=== PATIENT | male | born 1985 | race Caucasian/White ===

== ENCOUNTER 2019-08-26 07:47 | Day surgery (SDC) | payer BC, OTHER ==
[~2019-08-26 07:47] MED LIST: Lactated Ringers 1,000 ML IV SCH; Lidocaine 1%/Sod Bicarbonate in NS 8.4% 1 ML Syringe IDERM PRN; Sodium Chloride 0.9% 10 ML Syringe FLUSH PRN
--- NOTE | 2019-08-26 08:59 | PCM.PREANE ---
Preanesthetic Assessment - Anesthesia/Transfusion/Family Hx Anesthesia History: Prior Anesthesia Without Reaction Family History of Anesthesia Reaction: No - Review of Systems General: No Symptoms Pulmonary: No Symptoms, Other (Quit smoking 08/05/19 prevoiusly 3-4 cigarettes per day. KATERINE with CPAP use. ) Cardiovascular: No Symptoms Gastrointestinal: Other (GERD/Burping. No symptoms today. ) Neurological: No Symptoms Other: Reports: None (PTSD, Bipolar, ADHD, Obesity BMI 47), Diabetes (Blood Glucose 134 mg/dl this morning), Depression - Physical Assessment NPO Status Date: 08/25/19 NPO Status Time: 23:00 Vital Signs: Last Vital Signs Temp 36.5 C 08/26/19 08:00 Pulse 89 08/26/19 08:00 Resp 16 08/26/19 08:00 BP 134/69 08/26/19 08:00 Pulse Ox 95 08/26/19 08:00 Height: 1.68 m Weight: 132.449 kg ASA Class: 3 Mental Status: Alert & Oriented x3 Airway Class: Mallampati = 2 Dentition: Reports: Normal Dentition Thyro-Mental Finger Breadths: 3 Mouth Opening Finger Breadths: 3 ROM/Head Extension: Full Lungs: Clear to Auscultation, Normal Respiratory Effort Cardiovascular: Regular Rate, Regular Rhythm, No Murmurs (History of a murmur as a child.) - Lab Values: Laboratory Last Values POC Glucose 134 mg/dL (70-105) H 08/26/19 08:28 - Allergies Allergies/Adverse Reactions: Allergies Allergy/AdvReac Type Severity Reaction Status Date / Time lactose AdvReac Nausea and Verified 08/25/19 15:49 Vomiting - Acknowledgements Anesthesia Type Planned: MAC Pt an Appropriate Candidate for the Planned Anesthesia: Yes Alternatives and Risks of Anesthesia Discussed w Pt/Guardian: Yes Pt/Guardian Understands and Agrees with Anesthesia Plan: Yes PreAnesthesia Questionnaire HEENT History: Reports: None Cardiovascular History: Reports: Heart Murmur, High Cholesterol Respiratory History: Reports: Sleep Apnea Gastrointestinal History: Reports: Other (See Below) Other Gastrointestinal History: fatty liver, lactose intolerance Genitourinary History: Reports: None MANAGER OF GLOBAL History: Reports: None Musculoskeletal History: Reports: Gout Neurological History: Reports: None Psychiatric History: Reports: ADHD, Bipolar, Depression, PTSD, Other (See Below) Other Psychiatric History: insomnia, pysch hospitalization Endocrine/Metabolic History: Reports: Diabetes, Type II, Obesity/BMI 30+ Hematologic History: Reports: Anemia Immunologic History: Reports: None Oncologic (Cancer) History: Reports: None Dermatologic History: Reports: Other (See Below) Other Dermatologic History: hidradenitis suppurativa - Past Surgical History Head Surgeries/Procedures: Reports: None HEENT Surgical History: Reports: Oral Surgery Cardiovascular Surgical History: Reports: None Respiratory Surgical History: Reports: None GI Surgical History: Reports: Colonoscopy Male Surgical History: Reports: Vasectomy Endocrine Surgical History: Reports: None Neurological Surgical History: Reports: None Musculoskeletal Surgical History: Reports: None Oncologic Surgical History: Reports: None - SUBSTANCE USE Smoking Status *Q: Former Smoker Recreational Drug Use History: No - HOME MEDS Home Medications: Home Meds Allopurinol [Zyloprim] 100 mg PO DAILY 08/25/19 [History] Aspirin 81 mg PO DAILY 08/25/19 [History] Dextroamphetamine/Amphetamine [Adderall 10 mg Tablet] 10 mg PO BID 08/25/19 [ History] Liraglutide [Victoza] 1.8 mg SQ DAILY 08/25/19 [History] Pantoprazole Sodium 40 mg PO DAILY 08/25/19 [History] QUEtiapine Fumarate [Quetiapine Fumarate] 50 mg PO DAILY 08/25/19 [History] Simvastatin 80 mg PO BEDTIME 08/25/19 [History] Venlafaxine HCl [Venlafaxine ER] 150 mg PO DAILY 08/25/19 [History] Venlafaxine [Effexor] 75 mg PO DAILY 08/25/19 [History] lisinopriL [Lisinopril] 20 mg PO DAILY 08/25/19 [History] metFORMIN [Glucophage XR] 500 mg PO BID 08/25/19 [History] - CURRENT (IN HOUSE) MEDS Current Meds: Current Medications Lactated Ringer's (Ringers, Lactated) 1,000 mls @ 125 mls/hr IV ASDIRECTED MECHELLE Stop: 08/26/19 23:00 Lidocaine/Sodium Bicarbonate (Buffered Lidocaine 1% In Ns 8.4%) 0.25 ml IDERM ONETIME PRN PRN Reason: Prior to IV Start Stop: 08/26/19 18:00 Sodium Chloride (Saline Flush) 10 ml FLUSH ASDIRECTED PRN PRN Reason: Keep Vein Open Stop: 08/26/19 18:00
[2019-08-26] MEDS ORDERED: Propofol 200 MG/20 ML SDV ONE ×2 (09:21→09:58)
[2019-08-26] MEDS ORDERED: Lidocaine 1% 4 ML ONE ×2 (09:24→09:47)
[2019-08-26] MEDS ORDERED: fentaNYL 100 MCG/2 ML SDV ONE (09:25)
[2019-08-26] MEDS ORDERED: Lactated Ringers 1,000 ML ONE (10:12)
--- NOTE | 2019-08-26 10:24 | PCM.OPNOTE ---
- General Post-Op/Procedure Note Date of Surgery/Procedure: 08/26/19 Operative Procedure(s): EGD and colonoscopy Findings: 1. Duodenal plaques in the second portion of the duodenum 2. Duodenal polyps 3. Gastritis 4. Bile reflux 5. Small sliding hiatal hernia 6. Irregular GE junction 7. Transverse colon polyp Pre Op Diagnosis: Melena, reflux, change in bowel habits Post-Op Diagnosis: Same Anesthesia Technique: MAC Primary Surgeon: Emerita Cardona Anesthesia Provider: Servando Guillaume Pathology: 1. Duodenal biopsy (2nd portion of the duodenum) 2. Duodenal polyp biopsy 3. Gastric antrum 4. GE junction biopsies 5. Transverse colon polyp Fluid Replacement, Intraop: 1,500 EBL in mLs: 0 Complications: None apparent Condition: Good
--- NOTE | 2019-08-26 10:25 | PCM.PRNOTE ---
- Free Text/Narrative Note: Operative Report Date of Procedure: August 26, 2019 Pre Op Diagnosis: Melena, reflux, change in bowel habits Post-Op Diagnosis: Same Operative Procedures: 1. EGD with biopsy 2. Colonoscopy to the cecum with polypectomy Primary Surgeon: Emerita Cardona MD Anesthesia Provider: Servando Guillaume CRNA Anesthesia Technique: MAC IV Fluid Replacement, Intraop: 1500cc crystalloid Output, Urine Amount: 0cc EBL in mLs: 0cc Findings: 1. Duodenal plaques in the second portion of the duodenum 2. Duodenal polyps 3. Gastritis 4. Bile reflux 5. Small sliding hiatal hernia 6. Irregular GE junction 7. Transverse colon polyp Specimens: 1. Duodenal biopsy (2nd portion of the duodenum) 2. Duodenal polyp biopsy 3. Gastric antrum 4. GE junction biopsies 5. Transverse colon polyp Drain/Tubes: None Indication: The patient is a 34-year-old gentleman who presented to the clinic with findings of melena, as well as change in bowel habits. The patient reported symptoms of reflux, burping, and tarry stools in addition in addition. The patient was consented for a diagnostic EGD and colonoscopy. Risks of bleeding, and perforation were discussed, and the patient agreed to the risks and wished to proceed. Description of the procedure: The patient was taken back to the endoscopy suite, and placed in the left lateral decubitus position. A bite block was placed. The patient was sedated with MAC anesthesia. The Olympus video endoscope was inserted into the oropharynx and guided under direct vision into the esophagus, stomach, and duodenum. The gastric antrum was inspected and cold biopsy forceps were used to take tissue samples for H. pylori. The duodenal bulb was unremarkable, but the second portion of the duodenum was marked by multiple small white plaques adherent to the mucosa. Biopsies were taken in this area using a cold biopsy forceps. The scope was withdrawn to the stomach and retroflexed. There was increased bilious fluid, and the body of the stomach, this was suctioned. No erosions or ulcers were noted. The scope was withdrawn to the esophagus. A this point we noted a small sliding hiatal hernia. The gastroesophageal junction was irregular, but more concerning for esophagitis. Biopsies were taken in 4 quadrants using cold biopsy forceps at the GE junction. The endoscope was then withdrawn Next, anorectal examination was performed. No lesions, masses or hemorrhoids were noted externally or on palpation. The scope was placed into the rectum and advanced to cecum. Upon reaching the cecum, and the patients cecum was entered. There was minimal tortuosity of the colon. The ileocecal valve was well visualized and the appendiceal orifice identified. At this point, the scope was slowly withdrawn, paying attention to the mucosa. The patient had excellent bowel prep, greater than 95 % of the mucosa was visible. A single 2- 3mm, flat, transverse colon polyp was noted. This was removed using cold biopsy forceps. In the rectum, scope was retroflexed and some hemorrhoidal tissue was noted. The scope was placed back in the lumen and excess air was aspirated. The scope was removed. The patient tolerated the procedure very well. Complications: None apparent Condition: The patient was transported to PACU in stable condition. Emerita Cardona MD General Surgery
--- NOTE | 2019-08-26 10:35 | PCM48HPAN ---
Post Anesthesia Note - EVALUATION WITHIN 48HRS OF ANESTHETIC Vital Signs in Normal Range: Yes Patient Participated in Evaluation: Yes Respiratory Function Stable: Yes Airway Patent: Yes Cardiovascular Function Stable: Yes Hydration Status Stable: Yes Pain Control Satisfactory: Yes Nausea and Vomiting Control Satisfactory: Yes Mental Status Recovered: Yes Vital Signs: Last Vital Signs Temp 97.7 F 08/26/19 08:00 Pulse 89 08/26/19 08:00 Resp 16 08/26/19 08:00 BP 134/69 08/26/19 08:00 Pulse Ox 95 08/26/19 08:00
[2019-08-26 11:06] VITALS: BP 121/62; PULSE 94
== END 2019-08-26 11:12 | disposition home or self-care (01) ==
LOC: JD.SDS 07:47
PROVIDERS: ATTEND Surgery
DX: K29.71 Gastritis, unspecified, with bleeding (principal); D12.3 Benign neoplasm of transverse colon; K31.89 Other diseases of stomach and duodenum; K21.0 Gastro-esophageal reflux disease with esophagitis; K31.7 Polyp of stomach and duodenum; K44.9 Diaphragmatic hernia without obstruction or gangrene; E78.2 Mixed hyperlipidemia; E11.9 Type 2 diabetes mellitus without complications; M10.9 Gout, unspecified; F32.9 Major depressive disorder, single episode, unspecified; E66.01 Morbid (severe) obesity due to excess calories; Z79.899 Other long term (current) drug therapy; Z79.82 Long term (current) use of aspirin; Z79.4 Long term (current) use of insulin; Z87.891 Personal history of nicotine dependence; Z68.42 Body mass index [BMI] 45.0-49.9, adult
CPT/HCPCS: 43239; 45380; 82962; J2001; J2704; J3010; J7120

== ENCOUNTER 2020-07-31 14:03 | Emergency (ER) | payer BC ==
[2020-07-31 14:20] VITALS: BP 162/101; PULSE 94
[2020-07-31] MEDS ORDERED: Ondansetron 4 MG/2 ML SDV IVPUSH ONE (15:05)
[2020-07-31] MEDS ORDERED: HYDROmorphone 1 MG/ML Syringe IVPUSH STA (15:05)
[2020-07-31] MEDS ORDERED: Sodium Chloride 0.9% 10 ML Syringe FLUSH PRN (15:05)
--- NOTE | 2020-07-31 15:10 | EDM.PDOC ---
ED HPI GENERAL MEDICAL PROBLEM - General Chief Complaint: Flank Pain Stated Complaint: LOW ABD AND BACK PAIN HAS HX OF KIDNEY STONES Time Seen by Provider: 07/31/20 14:58 Source of Information: Reports: Patient, RN Notes Reviewed History Limitations: Reports: No Limitations - History of Present Illness INITIAL COMMENTS - FREE TEXT/NARRATIVE: Patient is a 35-year-old male who presents to the ED for the evaluation of his left flank pain. Patient notes he has a history of kidney stones, and states that the pain feels quite similar to that. He developed this pain at around 1 AM this morning, when they started driving back from [place] after visiting his mother for the holidays. He was able to urinate this morning, but is still having left flank pain and pain that radiates into his groin. He did not take anything for pain management at home, he feels generally nauseous has but has not vomited, he has had no fevers or chills, or any cough or shortness of breath. FLANK LEFT Pain Score (Numeric/FACES): 10 - Related Data Allergies Allergy/AdvReac Type Severity Reaction Status Date / Time lactose AdvReac Nausea and Verified 08/25/19 15:49 Vomiting Home Meds: Home Meds Allopurinol [Zyloprim] 100 mg PO DAILY 08/25/19 [History] Aspirin 81 mg PO DAILY 08/25/19 [History] Dextroamphetamine/Amphetamine [Adderall 10 mg Tablet] 10 mg PO BID 08/25/19 [History] Liraglutide [Victoza] 1.8 mg SQ DAILY 08/25/19 [History] Pantoprazole Sodium 40 mg PO DAILY 08/25/19 [History] QUEtiapine Fumarate [Quetiapine Fumarate] 50 mg PO DAILY 08/25/19 [History] Simvastatin 80 mg PO BEDTIME 08/25/19 [History] Venlafaxine HCl [Venlafaxine ER] 150 mg PO DAILY 08/25/19 [History] Venlafaxine [Effexor] 75 mg PO DAILY 08/25/19 [History] lisinopriL [Lisinopril] 20 mg PO DAILY 08/25/19 [History] metFORMIN [Glucophage XR] 500 mg PO BID 08/25/19 [History] Tamsulosin [Tamsulosin 24 Hr] 0.4 mg PO DAILY #5 cap.er 07/31/20 [Rx] Past Medical History Cardiovascular History: Reports: Heart Murmur, High Cholesterol Respiratory History: Reports: Sleep Apnea Gastrointestinal History: Reports: Other (See Below) Other Gastrointestinal History: fatty liver, lactose intolerance Musculoskeletal History: Reports: Gout Psychiatric History: Reports: ADHD, Bipolar, Depression, PTSD, Other (See Below) Other Psychiatric History: insomnia, pysch hospitalization Endocrine/Metabolic History: Reports: Diabetes, Type II, Obesity/BMI 30+ Hematologic History: Reports: Anemia Dermatologic History: Reports: Other (See Below) Other Dermatologic History: hidradenitis suppurativa - Past Surgical History HEENT Surgical History: Reports: Oral Surgery GI Surgical History: Reports: Colonoscopy Male Surgical History: Reports: Vasectomy Social & Family History - Tobacco Use Tobacco Use Status *Q: Current Some Day Tobacco User Years of Tobacco use: 20 Packs/Tins Daily: 0.1 - Caffeine Use Caffeine Use: Reports: Soda - Recreational Drug Use Recreational Drug Use: No ED ROS GENERAL - Review of Systems Review Of Systems: Comprehensive ROS is negative, except as noted in HPI. ED EXAM, RENAL/ - Physical Exam Exam: See Below Exam Limited By: No Limitations General Appearance: Alert, WD/WN, No Apparent Distress Respiratory/Chest: No Respiratory Distress, Lungs Clear, Normal Breath Sounds, No Accessory Muscle Use, Chest Non-Tender Cardiovascular: Normal Peripheral Pulses, Regular Rate, Rhythm, No Edema GI/Abdominal: Normal Bowel Sounds, Soft, Non-Tender, No Distention, No Mass Extremities: Normal Inspection, Normal Capillary Refill Neurological: Alert, Oriented, Normal Cognition, No Motor/Sensory Deficits Psychiatric: Normal Affect, Normal Mood Skin Exam: Warm, Dry, Intact, Normal Color, No Rash Course - Vital Signs Last Recorded V/S: Last Vital Signs Temp 97.8 F 07/31/20 14:17 Pulse 94 07/31/20 14:17 Resp 22 H 07/31/20 14:17 BP 162/101 H 07/31/20 14:17 Pulse Ox 98 07/31/20 14:17 - Orders/Labs/Meds Orders: Active Orders 24 hr Category Date Time Status Peripheral IV Care [RC] . DIRECTED Care 07/31/20 15:06 Ordered Strain Urine [RC] ASDIRECTED Care 07/31/20 15:05 Ordered Sodium Chloride 0.9% [Normal Saline] 1,000 ml Med 07/31/20 15:15 Ordered IV ASDIRECTED Sodium Chloride 0.9% [Saline Flush] Med 07/31/20 15:05 Ordered 10 ml FLUSH ASDIRECTED PRN Peripheral IV Insertion Adult [OM.PC] Routine Oth 07/31/20 15:05 Ordered Medication Orders Sodium Chloride (Normal Saline) 1,000 mls @ 999 mls/hr IV ASDIRECTED MECHELLE Last Admin: 07/31/20 15:17 Dose: 999 mls/hr Documented by: BEN Sodium Chloride (Saline Flush) 10 ml FLUSH ASDIRECTED PRN PRN Reason: Keep Vein Open Last Admin: 07/31/20 15:18 Dose: 10 ml Documented by: BEN Labs: Laboratory Tests 07/31/20 07/31/20 07/31/20 Range/Units 14:29 14:29 15:00 WBC 11.88 H (4.23-9.07) K/mm3 RBC 5.49 (4.63-6.08) M/mm3 Hgb 13.6 L (13.7-17.5) gm/dl Hct 45.5 (40.1-51.0) % MCV 82.9 (79.0-92.2) fl MCH 24.8 L (25.7-32.2) pg MCHC 29.9 L (32.2-35.5) g/dl RDW Std Deviation 46.1 H (35.1-43.9) fL Plt Count 127 L (163-337) K/mm3 Neut % (Auto) 83.3 H (34.0-67.9) % Lymph % (Auto) 8.1 L (21.8-53.1) % [place] % (Auto) 7.4 (5.3-12.2) % Eos % (Auto) 0.3 L (0.8-7.0) Baso % (Auto) 0.2 (0.1-1.2) % Neut # (Auto) 9.91 H (1.78-5.38) K/mm3 Lymph # (Auto) 0.96 L (1.32-3.57) K/mm3 [place] # (Auto) 0.88 H (0.30-0.82) K/mm3 Eos # (Auto) 0.03 L (0.04-0.54) K/mm3 Baso # (Auto) 0.02 (0.01-0.08) K/mm3 Manual Slide Review Abnormal smear Sodium 138 (136-145) mEq/L Potassium 4.6 (3.5-5.1) mEq/L Chloride 100 (98-107) mEq/L Carbon Dioxide 26 (21-32) mEq/L Anion Gap 16.6 H (5-15) BUN 10 (7-18) mg/dL Creatinine 1.1 (0.7-1.3) mg/dL Est Cr Clr Drug Dosing 85.39 mL/min Estimated GFR (MDRD) > 60 (>60) mL/min BUN/Creatinine Ratio 9.1 L (14-18) Glucose 119 H (74-106) mg/dL Calcium 9.0 (8.5-10.1) mg/dL Total Bilirubin 0.4 (0.2-1.0) mg/dL AST 62 H (15-37) U/L ALT 188 H (16-63) U/L Alkaline Phosphatase 103 (46-116) U/L Total Protein 8.2 (6.4-8.2) g/dl Albumin 4.3 (3.4-5.0) g/dl Globulin 3.9 gm/dL Albumin/Globulin Ratio 1.1 (1-2) Urine Color Yellow (Yellow) Urine Appearance Clear (Clear) Urine pH 6.0 (5.0-8.0) Ur Specific [place] > or = 1.030 (1.005-1.030) Urine Protein Trace H (Negative) Urine Glucose (UA) Negative (Negative) Urine Ketones Negative (Negative) Urine Occult Blood 2+ H (Negative) Urine Nitrite Negative (Negative) Urine Bilirubin Negative (Negative) Urine Urobilinogen 0.2 (0.2-1.0) Ur Leukocyte Esterase Negative (Negative) U Hyaline Cast (Auto) 0-5 (0-5) /lpf Urine RBC 0-5 (0-5) /hpf Urine WBC 0-5 (0-5) /hpf Ur Epithelial Cells Not seen (0-5) /hpf Urine Bacteria Moderate H (FEW) /hpf Urine Mucus Many H (FEW) /hpf Meds: Medications Generic Name Dose Route Start Last Admin Trade Name Freq PRN Reason Stop Dose Admin Sodium Chloride 1,000 mls @ 999 mls/hr 12/27/20 15:15 07/31/20 15:17 Normal Saline IV 999 mls/hr ASDIRECTED MECHELLE Administration Sodium Chloride 10 ml 07/31/20 15:05 07/31/20 15:18 Saline Flush FLUSH 10 ml ASDIRECTED PRN Administration Keep Vein Open Discontinued Medications Generic Name Dose Route Start Last Admin Trade Name Balwinderq PRN Reason Stop Dose Admin Hydromorphone HCl 1 mg 07/31/20 15:05 07/31/20 15:17 Dilaudid IVPUSH 07/31/20 15:06 1 mg ONETIME STA Administration Hydromorphone HCl 0.5 mg 07/31/20 16:15 07/31/20 16:18 Dilaudid IVPUSH 07/31/20 16:16 0.5 mg ONETIME ONE Administration Ondansetron HCl 4 mg 07/31/20 15:05 07/31/20 15:17 Zofran IVPUSH 07/31/20 15:06 4 mg ONETIME ONE Administration Tamsulosin HCl 0.4 mg 07/31/20 16:32 07/31/20 16:39 Flomax PO 07/31/20 16:33 0.4 mg ONETIME ONE Administration - Re-Assessments/Exams Free Text/Narrative Re-Assessment/Exam: 07/31/20 15:09 Patient presents to the ED for the evaluation of his left flank pain. There is suspicious for kidney stone in nature, we will get CT, basic labs, urinalysis get some IV pain meds and nausea meds on board with some fluids for initial management. 07/31/20 16:25 CT is done, and there does appear to be a kidney stone within the bladder at this time. No other focal abnormalities are appreciated by myself however official radiology read is pending. 07/31/20 16:[address] has been read, there is a 4.5 mm stone located at the UVJ within the distal left ureter. Patient has been given 1 dose of Flomax while in the ER, will get him some outpatient prescriptions for pain meds and nausea medications along with Flomax for the next day or 2, until he passes the stone in his urine. Departure - Departure Time of Disposition: 16:40 Disposition: Home, Self-Care 01 Condition: Good Clinical Impression: Left renal stone - Discharge Information *PRESCRIPTION DRUG MONITORING PROGRAM REVIEWED*: No *COPY OF PRESCRIPTION DRUG MONITORING REPORT IN PATIENT [place]: No Prescriptions: Tamsulosin [Tamsulosin 24 Hr] 0.4 mg PO DAILY #5 cap.er Instructions: Dietary Guidelines to Help Prevent Kidney Stones Referrals: Nicole Cordero PA-C [Primary Care Provider] - Forms: ED Department Discharge Additional Instructions: You were evaluated in the ER today for your left flank pain. Your urinalysis did demonstrate some blood in urine, which is suggestive of a kidney stone at this time. A CT was done at this ER visit, this demonstrated a 4.5mm stone within your distal left ureter. You have been given a strainer, please use every time you use the bathroom to make sure that the kidney stone has passed. Believe the stone will pass within the next day or 2 due to where it is located. Recommend that you increase your oral fluid intake to try to help the stone pass. You were given oral Flomax, you will need to go to the pharmacy tomorrow to pick this up. 1 tablet daily until you passed the stone. Please strain your urine, every time you use the bathroom, to make sure that you have in fact passed the stone. You have been given a few tablets of pain medication, please take as prescribed. These medications are highly addictive, please take as few as you need to. These medications also may cause constipation, please take a stool softener like MiraLAX while taking these medications. If your pain is not much better in a week's time, you may need to follow up with your primary care physician, for a possible urology referral. Please return to the ED if your symptoms change or worsen. Sepsis Event Note (ED) - Evaluation Sepsis Screening Result: No Definite Risk - Focused Exam Vital Signs: Vital Signs Temp Pulse Resp BP Pulse Ox 07/31/20 14:17 97.8 F 94 22 H 162/101 H 98 - My Orders Last 24 Hours: My Active Orders 07/31/20 15:05 Strain Urine [RC] ASDIRECTED Sodium Chloride 0.9% [Saline Flush] 10 ml FLUSH ASDIRECTED PRN Peripheral IV Insertion Adult [OM.PC] Routine 07/31/20 15:06 Peripheral IV Care [RC] . DIRECTED 07/31/20 15:15 Sodium Chloride 0.9% [Normal Saline] 1,000 ml IV ASDIRECTED - Assessment/Plan Last 24 Hours: My Active Orders 07/31/20 15:05 Strain Urine [RC] ASDIRECTED Sodium Chloride 0.9% [Saline Flush] 10 ml FLUSH ASDIRECTED PRN Peripheral IV Insertion Adult [OM.PC] Routine 07/31/20 15:06 Peripheral IV Care [RC] . DIRECTED 07/31/20 15:15 Sodium Chloride 0.9% [Normal Saline] 1,000 ml IV ASDIRECTED
[2020-07-31] MEDS ORDERED: Sodium Chloride 0.9% 1,000 ML IV SCH (15:15)
[2020-07-31] MEDS ORDERED: HYDROmorphone 0.5 MG/0.5 ML Syringe IVPUSH ONE (16:15)
--- NOTE | 2020-07-31 16:31 | CT ---
CT abdomen and pelvis Technique: Multiple axial sections were obtained from above the dome of the diaphragm inferiorly through the pubic symphysis. Intravenous and oral contrast not utilized. Study has been performed as a ureteral stone protocol. Reconstructed coronal and sagittal images were also obtained. Findings: Kidneys show no abnormal calcifications. Left ureter is slightly prominent with mild surrounding inflammatory change. This finding is caused by an obstructing stone located distally at the UVJ measuring approximately 4.5 mm. Other portions of the ureters show no other abnormal calcifications. Other findings: Visualized lung bases show nothing acute. Diffuse fatty infiltration is seen within the liver. Spleen appears within normal limits. Adrenal glands show no nodule. Pancreas appears within normal limits. Aorta shows no aneurysm. No retroperitoneal adenopathy or mesenteric abnormalities are appreciated. No pelvic mass or adenopathy is appreciated. Very small left-sided fat-containing inguinal hernia is noted. Appendix is not definitely appreciated. Bone window settings were reviewed which appear within normal limits for the patient's age. Impression: 1. 4.5 mm stone located at the UVJ within the distal left ureter. 2. Diffuse fatty infiltration within the liver. 3. No other acute abnormality is appreciated on noncontrast CT study of the abdomen and pelvis. Diagnostic code #3
[2020-07-31] MEDS ORDERED: Tamsulosin 0.4 MG Cap.ER PO ONE (16:32)
== END 2020-07-31 16:56 | disposition home or self-care (01) ==
LOC: JD.ED 14:03
DX: N20.2 Calculus of kidney with calculus of ureter (principal); E78.00 Pure hypercholesterolemia, unspecified; M10.9 Gout, unspecified; F31.9 Bipolar disorder, unspecified; E11.9 Type 2 diabetes mellitus without complications; E66.9 Obesity, unspecified; F90.9 Attention-deficit hyperactivity disorder, unspecified type; F17.210 Nicotine dependence, cigarettes, uncomplicated; Z68.42 Body mass index [BMI] 45.0-49.9, adult; Z79.82 Long term (current) use of aspirin; Z79.84 Long term (current) use of oral hypoglycemic drugs; Z79.899 Other long term (current) drug therapy; Z91.048 Other nonmedicinal substance allergy status
CPT/HCPCS: 36415; 74176; 80053; 81001; 85025; 96374; 96375; 96376; 99284; A9270; J1170; J2405; J7030

== ENCOUNTER 2022-05-16 14:05 | Emergency (ER) | payer BC ==
[2022-05-16 14:59] VITALS: BP 128/66; PULSE 107
[2022-05-16] MEDS ORDERED: Ketorolac 60 MG/2 ML SDV IM ONE (15:07)
== END 2022-05-16 18:26 | disposition home or self-care (01) ==
LOC: JD.ED 14:05
DX: N43.3 Hydrocele, unspecified (principal); E78.00 Pure hypercholesterolemia, unspecified; I10 Essential (primary) hypertension; E11.9 Type 2 diabetes mellitus without complications; E66.9 Obesity, unspecified; Z68.42 Body mass index [BMI] 45.0-49.9, adult; Z91.011 Allergy to milk products; Z79.899 Other long term (current) drug therapy; Z79.82 Long term (current) use of aspirin; Z79.84 Long term (current) use of oral hypoglycemic drugs; Z87.891 Personal history of nicotine dependence
CPT/HCPCS: 76870; 76870-26; 93975; 96372; 99284

== ENCOUNTER 2022-12-03 06:46 | Day surgery (SDC) | payer BC ==
[~2022-12-03 06:46] MED LIST changes: +Sodium Chloride 0.9% 10 ML Syringe FLUSH SCH
[2022-12-03] MEDS ORDERED: Acetaminophen 325 MG Tab PO SCH (07:00)
[2022-12-03] MEDS ORDERED: Gabapentin 300 MG Cap PO SCH (07:00)
[2022-12-03] MEDS ORDERED: Bupivacaine 0.5%/EPINEPHrine 1:200,000 50 ML MDV ONE (07:09)
[2022-12-03] MEDS ORDERED: Lidocaine 1% with EPINEPHrine 1:100,000 20 ML MDV ONE (07:10)
[2022-12-03] MEDS ORDERED: Rocuronium 50 MG/5 ML Vial ONE (07:14)
[2022-12-03] MEDS ORDERED: fentaNYL 100 MCG/2 ML SDV ONE (07:14)
[2022-12-03] MEDS ORDERED: Midazolam 1 MG/ML 2 ML SDV ONE (07:14)
[2022-12-03] MEDS ORDERED: ceFAZolin 2 GM Vial ONE ×2 (07:14→08:19)
[2022-12-03] MEDS ORDERED: Lidocaine 1% 4 ML ONE (07:14)
[2022-12-03] MEDS ORDERED: Propofol 200 MG/20 ML SDV ONE (07:14)
[2022-12-03] MEDS ORDERED: Succinylcholine 200 MG/10 ML MDV ONE (08:19)
[2022-12-03] MEDS ORDERED: Ketorolac 30 MG/ML SDV ONE (08:43)
[2022-12-03] MEDS ORDERED: Ondansetron 4 MG/2 ML SDV ONE (08:43)
[2022-12-03] MEDS ORDERED: fentaNYL 100 MCG/2 ML SDV IVPUSH PRN (09:03)
[2022-12-03] MEDS ORDERED: HYDROmorphone 0.5 MG/0.5 ML Syringe IVPUSH PRN (09:03)
[2022-12-03] MEDS ORDERED: Ondansetron 4 MG/2 ML SDV IVPUSH PRN (09:03)
[2022-12-03] MEDS ORDERED: ePHEDrine 50 MG/ML SDV ONE (10:04)
[2022-12-03 10:28] VITALS: BP 95/60; PULSE 81
== END 2022-12-03 10:37 | disposition home or self-care (01) ==
LOC: JD.SDS 06:46
PROVIDERS: ATTEND Surgery
DX: K60.3 Anal fistula (principal); F31.9 Bipolar disorder, unspecified; D64.9 Anemia, unspecified; F43.10 Post-traumatic stress disorder, unspecified; F51.05 Insomnia due to other mental disorder; F90.9 Attention-deficit hyperactivity disorder, unspecified type; E66.01 Morbid (severe) obesity due to excess calories; F41.9 Anxiety disorder, unspecified; G47.33 Obstructive sleep apnea (adult) (pediatric); I10 Essential (primary) hypertension; R01.1 Cardiac murmur, unspecified; E78.2 Mixed hyperlipidemia; Z79.899 Other long term (current) drug therapy; Z79.82 Long term (current) use of aspirin; Z79.84 Long term (current) use of oral hypoglycemic drugs; Z91.011 Allergy to milk products; Z87.891 Personal history of nicotine dependence; Z68.42 Body mass index [BMI] 45.0-49.9, adult
CPT/HCPCS: 45990; 46275; 82947; A9270; J0330; J1885; J2250; J2405; J2704; J3010; J3490; J7120; J0690

== ENCOUNTER 2023-05-01 20:33 | Emergency (ER) | payer BC ==
[2023-05-01] MEDS ORDERED: Acetaminophen/HYDROcodone 325-10 MG Tab PO ONE (20:50)
[2023-05-01 22:40] VITALS: BP 124/55; PULSE 105
== END 2023-05-01 21:42 | disposition home or self-care (01) ==
LOC: JD.ED 20:33
DX: S93.402A Sprain of unspecified ligament of left ankle, initial encounter (principal); E11.9 Type 2 diabetes mellitus without complications; I10 Essential (primary) hypertension; E78.00 Pure hypercholesterolemia, unspecified; E66.9 Obesity, unspecified; Z68.42 Body mass index [BMI] 45.0-49.9, adult; Z91.011 Allergy to milk products; Z79.82 Long term (current) use of aspirin; Z79.899 Other long term (current) drug therapy; W19.XXXA Unspecified fall, initial encounter
CPT/HCPCS: 73610; 99283; A9270

== ENCOUNTER 2024-03-23 04:08 | Emergency (ER) | payer BC ==
[2024-03-23 04:43] VITALS: BP 143/79; PULSE 94
[2024-03-23] MEDS: HYDROmorphone 0.5 MG/0.5 ML Syringe IVPUSH ONE ×2 (04:49→06:19)
[2024-03-23] MEDS: Sodium Chloride 0.9% 10 ML Syringe FLUSH PRN (04:50)
[2024-03-23 05:18] LABS: ALBUMIN 3.5 g/dl (3.4-5.0); BILIRUBIN TOTAL 0.3 mg/dL (0.2-1.0); CALCIUM 8.6 mg/dL (8.5-10.1); EST CRCL DRUG DOSING (CG) 92.01 mL/min
[2024-03-23 05:35] LABS: BASOPHILS PERCENT AUTO 0.5 % (0.0-1.0); EOSINOPHILS ABSOLUTE AUTO 0.1 K/mm3 (0.0-0.4); HEMATOCRIT 42.1 % (42.0-52.0); HEMOGLOBIN 12.7 gm/dl (14.0-18.0); IMMATURE GRAN ABSOLUTE AUTO 0.11 K/mm3 (0.00-0.05); IMMATURE GRAN PERCENT AUTO 1.3 % (0.0-0.4); LYMPHOCYTES ABSOLUTE AUTO 1.3 K/mm3 (1.0-4.8); LYMPHOCYTES PERCENT AUTO 15.1 % (24.0-44.0); MEAN CORPUSCULAR HEMOGLOBIN 25.1 pg (28.0-32.0); MEAN CORPUSCULAR HGB CONC 30.2 g/dl (32.0-36.0); MEAN CORPUSCULAR VOLUME 83.2 fl (83.0-99.0); MONOCYTES ABSOLUTE AUTO 0.6 K/mm3 (0.0-0.8); MONOCYTES PERCENT AUTO 7.3 % (0.0-8.0); NEUTROPHILS ABSOLUTE AUTO 6.5 K/mm3 (1.8-7.7); NEUTROPHILS PERCENT AUTO 74.8 % (41.0-71.0); PLATELET COUNT,PLT 116 K/mm3 (150-400); RED BLOOD CELL COUNT 5.06 M/mm3 (4.52-5.90); WHITE BLOOD CELL COUNT,WBC 8.63 K/mm3 (3.9-11.3)
[2024-03-23 06:11] LABS: APPEARANCE,URINE CLOUDY (Clear); BILIRUBIN,URINE 1+ (Negative); COLOR,URINE DARK YELLOW (Yellow); GLUCOSE,URINE NEGATIVE (Negative); KETONES,URINE NEGATIVE (Negative); LEUKOCYTE ESTERASE,URINE NEGATIVE (Negative); NITRITE,URINE NEGATIVE (Negative); OCCULT BLOOD,URINE 2+ (Negative); PH,URINE 5.5 (5.0-8.0); PROTEIN,URINE 1+ (Negative); UROBILINOGEN,URINE 0.2 (0.2-1.0)
[2024-03-23 22:11] LABS: BACTERIA,URINE FEW /hpf (FEW); MUCUS,URINE MANY /hpf (FEW); RBC,URINE 50-75 /hpf (0-5); SQUAMOUS EPITHELIAL CELLS,UR 0-5 /hpf (0-5); WBC,URINE 0-5 /hpf (0-5)
[2024-03-23 22:12] LABS: HYALINE CASTS,URINE 0-5 /lpf (0-5)
== END 2024-03-23 07:07 | disposition home or self-care (01) ==
LOC: JD.ED 04:08
DX: N50.811 Right testicular pain (principal); N43.3 Hydrocele, unspecified; I10 Essential (primary) hypertension; E78.00 Pure hypercholesterolemia, unspecified; E11.9 Type 2 diabetes mellitus without complications; E66.9 Obesity, unspecified; Z86.16 Personal history of COVID-19; Z79.82 Long term (current) use of aspirin; Z79.899 Other long term (current) drug therapy; Z91.048 Other nonmedicinal substance allergy status
CPT/HCPCS: 36415; 76870; 80053; 81001; 85025; 93975; 96374; 96376; 99284; J1170; J3490

== ENCOUNTER 2024-04-08 05:37 | Emergency (ER) | payer BC ==
[2024-04-08 06:15] LABS: APPEARANCE,URINE CLEAR (Clear); BILIRUBIN,URINE 1+ (Negative); COLOR,URINE YELLOW (Yellow); GLUCOSE,URINE NEGATIVE (Negative); KETONES,URINE NEGATIVE (Negative); LEUKOCYTE ESTERASE,URINE NEGATIVE (Negative); NITRITE,URINE NEGATIVE (Negative); OCCULT BLOOD,URINE 1+ (Negative); PH,URINE 5.5 (5.0-8.0); PROTEIN,URINE TRACE (Negative); UROBILINOGEN,URINE 0.2 (0.2-1.0)
[2024-04-08] MEDS: Ondansetron 4 MG/2 ML SDV IVPUSH ONE (06:16)
[2024-04-08] MEDS: Sodium Chloride 0.9% 10 ML Syringe FLUSH PRN (06:18)
[2024-04-08 06:32] LABS: BASOPHILS PERCENT AUTO 0.2 % (0.0-1.0); EOSINOPHILS PERCENT AUTO 0.4 % (0.0-6.0); HEMATOCRIT 37.5 % (42.0-52.0); HEMOGLOBIN 11.4 gm/dl (14.0-18.0); IMMATURE GRAN ABSOLUTE AUTO 0.08 K/mm3 (0.00-0.05); IMMATURE GRAN PERCENT AUTO 0.8 % (0.0-0.4); LYMPHOCYTES ABSOLUTE AUTO 0.9 K/mm3 (1.0-4.8); LYMPHOCYTES PERCENT AUTO 8.9 % (24.0-44.0); MEAN CORPUSCULAR HEMOGLOBIN 25.2 pg (28.0-32.0); MEAN CORPUSCULAR HGB CONC 30.4 g/dl (32.0-36.0); MONOCYTES ABSOLUTE AUTO 0.9 K/mm3 (0.0-0.8); MONOCYTES PERCENT AUTO 8.6 % (0.0-8.0); NEUTROPHILS PERCENT AUTO 81.1 % (41.0-71.0); PLATELET COUNT,PLT 116 K/mm3 (150-400); RED BLOOD CELL COUNT 4.52 M/mm3 (4.52-5.90); WHITE BLOOD CELL COUNT,WBC 9.83 K/mm3 (3.9-11.3)
[2024-04-08] MEDS: Ketorolac 30 MG/ML SDV IVPUSH ONE (06:34)
[2024-04-08 07:00] LABS: BACTERIA,URINE FEW /hpf (FEW); EPITHELIAL CELLS,URINE 0-5 /hpf (0-5); MUCUS,URINE MANY /hpf (FEW); WBC,URINE 0-5 /hpf (0-5)
[2024-04-08 07:08] LABS: A/G RATIO 1.1 (1-2); ALBUMIN 3.6 g/dl (3.4-5.0); ANION GAP 16.6 (5-15); BILIRUBIN TOTAL 0.4 mg/dL (0.2-1.0); C-REACTIVE PROTEIN 0.76 mg/dL (<0.30); CALCIUM 8.1 mg/dL (8.5-10.1); EST CRCL DRUG DOSING (CG) 92.01 mL/min; MAGNESIUM 1.3 mg/dL (1.8-2.4); POTASSIUM,K 3.6 mEq/L (3.5-5.1); PROTEIN TOTAL,TP 6.8 g/dl (6.4-8.2)
[2024-04-08 07:24] VITALS: BP 110/66; PULSE 93
[2024-04-08 07:48] LABS: SLIDE REVIEW ABNORMAL SMEAR
== END 2024-04-08 07:24 | disposition home or self-care (01) ==
LOC: JD.ED 05:37
DX: N20.1 Calculus of ureter (principal); M1A.00X0 Idiopathic chronic gout, unspecified site, without tophus (tophi); I10 Essential (primary) hypertension; E78.00 Pure hypercholesterolemia, unspecified; E11.9 Type 2 diabetes mellitus without complications; E66.9 Obesity, unspecified; Z86.16 Personal history of COVID-19; Z79.82 Long term (current) use of aspirin; Z79.899 Other long term (current) drug therapy; Z91.011 Allergy to milk products; Z68.39 Body mass index [BMI] 39.0-39.9, adult
CPT/HCPCS: 36415; 74176; 80053; 81001; 83735; 84550; 85025; 86140; 96374; 96375; 99284; J1885; J2405; J3490

== ENCOUNTER 2024-10-28 07:50 | Day surgery (SDC) | payer BC ==
[~2024-10-28 07:50] MED LIST changes: -Lactated Ringers 1,000 ML IV SCH; -Lidocaine 1%/Sod Bicarbonate in NS 8.4% 1 ML Syringe IDERM PRN
[2024-10-28] MEDS: Lactated Ringers 1,000 ML IV SCH (08:15)
[2024-10-28] MEDS ORDERED: propofoL 500 MG/50 ML 50 ML ONE (08:33)
[2024-10-28] MEDS ORDERED: Lidocaine 1% 4 ML ONE (08:33)
[2024-10-28] MEDS ORDERED: Propofol 200 MG/20 ML SDV ONE ×2 (09:08→09:23)
[2024-10-28 12:39] VITALS: BP 116/62; PULSE 80
== END 2024-10-28 10:45 | disposition home or self-care (01) ==
LOC: JD.SDS 07:50
PROVIDERS: ATTEND Surgery
DX: K62.1 Rectal polyp (principal); K29.50 Unspecified chronic gastritis without bleeding; K64.8 Other hemorrhoids; Q43.8 Other specified congenital malformations of intestine; K21.9 Gastro-esophageal reflux disease without esophagitis; Z86.0100 Personal history of colon polyps, unspecified; I89.0 Lymphedema, not elsewhere classified; I10 Essential (primary) hypertension; E11.9 Type 2 diabetes mellitus without complications; E78.2 Mixed hyperlipidemia; E66.01 Morbid (severe) obesity due to excess calories; F31.9 Bipolar disorder, unspecified; Z79.84 Long term (current) use of oral hypoglycemic drugs; Z79.899 Other long term (current) drug therapy
CPT/HCPCS: 43239; 45380; J2003; J2704; J7120; 00813